=== PATIENT | female | born 1970 | race Caucasian/White ===

== ENCOUNTER 2025-01-05 12:23 | Emergency (ER) | payer OTHER ==
[~2025-01-05] VITALS: Ht 180.3 cm; Wt 61.2 kg
[~2025-01-05 12:23] MED LIST: ACEASPCAF PO; ALBU90OI INH; AMOX500 PO; BENZ100A PO; CLAR500 PO; CODGUAEL PO; CYCL10 PO; DIAZ5 PO; FAMO20 PO; HYDACE5 PO; IBUP400 PO; IBUP800 PO; LAVAP4L PO; NAPR500 PO; NEOPOLHCSU RIGHTEAR; OMEP20ER PO; OMEP40CA12 PO; PANT40 PO; PARO20 PO; PARO30; PRED20 PO; PROCODE120 PO; PROM25 PO; PSEU120ER PO; RANI150 PO; SUCR1 PO; TRAM50 PO
[2025-01-05 12:28] VITALS: BP 147/108
[2025-01-05 13:03] LABS: Source, Urine Clean Catch
[2025-01-05 13:06] LABS: Bilirubin, Urine Neg (Neg); Color, Urine Yellow (P-Yellow); Glucose Qualitative, Urine Neg (Neg); Ketones, Urine Neg (Neg); Leukocyte Esterase, Urine 2+ (Neg); Protein, Urine 2+ (Neg); Specific Gravity, Urine 1.025 (1.003-1.022); Urobilinogen, Urine NORM (Normal)
[2025-01-05 13:12] LABS: Red Blood Cells, Urine 25-50 /hpf (0-2)
[2025-01-05] MEDS ORDERED: Ketorolac Tromethamine 15mg Vial IV ONE (14:20)
[2025-01-05 14:25] LABS: BASOPHILS ABSOLUTE AUTO 0.01 K/mm3 (0.00-0.23); BASOPHILS PERCENT AUTO 0 % (0-2); EOSINOPHILS ABSOLUTE AUTO 0.00 K/mm3 (0.00-0.68); EOSINOPHILS PERCENT AUTO 0 % (0-6); Hematocrit 40.6 % (33.0-51.0); Hemoglobin 13.5 g/dL (11.5-16.0); IMMATURE GRAN ABSOLUTE AUTO 0.01 K/mm3 (0.00-0.10); IMMATURE GRAN PERCENT AUTO 0 % (0-1); LYMPHOCYTES ABSOLUTE AUTO 1.52 K/mm3 (0.84-5.20); LYMPHOCYTES PERCENT AUTO 29 % (21-46); MONOCYTES ABSOLUTE AUTO 0.38 K/mm3 (0.16-1.47); MONOCYTES PERCENT AUTO 7 % (4-13); Mean Corpuscular HGB Conc 33.3 g/dL (31.5-36.5); Mean Corpuscular Volume 98 fL (80-100); NEUTROPHILS ABSOLUTE AUTO 3.27 K/mm3 (1.96-9.15); NEUTROPHILS PERCENT AUTO 63 % (41-73); NRBC ABSOLUTE 0.00 K/mm3 (0.00-0.02); NRBC Auto 0.0 /100 WBC (0.0-0.2); Platelet Count 208 K/mm3 (150-400); RDW Coefficient Variation 11.9 % (11.7-14.2); RDW Standard Deviation 42.9 fL (35.1-46.3)
[2025-01-05 14:39] LABS: Alanine Aminotransfer (ALT/SGP 20.0 U/L (12-78); Albumin, Blood 3.4 g/dL (3.4-5.0); Albumin/Globulin Ratio 1.1 (0.8-1.8); Anion Gap 3.0 mmol/L (3-11); Aspartate Aminotrans (AST/SGOT 12.0 U/L (12-37); Bilirubin, Total 0.2 mg/dL (0.1-1.0); Blood Urea Nitrogen 22.0 mg/dL (8-24); CO2, Blood 30.0 mmol/L (21-32); Calcium, Blood 8.7 mg/dL (8.5-10.1); Chloride, Blood 111.0 mmol/L (98-108); Creatinine, Blood 0.64 mg/dL (0.40-1.00); Globulin, Blood 3.2 g/dL (2.2-4.0); Glucose, Blood 85.0 mg/dL (70-99); Potassium, Blood 4.0 mmol/L (3.5-5.5); Sodium, Blood 140.0 mmol/L (136-145); Total Protein, Blood 6.6 g/dL (6.4-8.2)
[2025-01-05] MEDS ORDERED: BACTRIM DS TAB1 EAC1 PO (14:47)
[2025-01-05] MEDS ORDERED: Trimethoprim/Sulfamethoxazole DS Tab PO ONE (14:50)
== END 2025-01-05 15:21 | disposition home or self-care (01) ==
LOC: ER 12:23
PROVIDERS: Physician Assistant
DX: N13.6 Pyonephrosis (principal); F17.200 Nicotine dependence, unspecified, uncomplicated; Z59.89 Other problems related to housing and economic circumstances
CPT/HCPCS: 74177; 80053; 81001; 85025; 87086; 96374-59; 99283-25; A9270; J1885; Q9967

== ENCOUNTER 2025-03-27 15:47 | Emergency (ER) | payer OTHER ==
[~2025-03-27] VITALS: Ht 180.3 cm; Wt 68.0 kg
[~2025-03-27 15:47] MED LIST changes: +BACTRIM DS TAB1 EAC1 PO
[2025-03-27 16:50] LABS: BASOPHILS ABSOLUTE AUTO 0.05 K/mm3 (0.00-0.23); BASOPHILS PERCENT AUTO 1 % (0-2); EOSINOPHILS ABSOLUTE AUTO 0.00 K/mm3 (0.00-0.68); EOSINOPHILS PERCENT AUTO 0 % (0-6); Hematocrit 47.4 % (33.0-51.0); Hemoglobin 16.4 g/dL (11.5-16.0); IMMATURE GRAN ABSOLUTE AUTO 0.02 K/mm3 (0.00-0.10); IMMATURE GRAN PERCENT AUTO 0 % (0-1); LYMPHOCYTES ABSOLUTE AUTO 2.36 K/mm3 (0.84-5.20); LYMPHOCYTES PERCENT AUTO 31 % (21-46); MONOCYTES ABSOLUTE AUTO 0.58 K/mm3 (0.16-1.47); MONOCYTES PERCENT AUTO 8 % (4-13); Mean Corpuscular HGB Conc 34.6 g/dL (31.5-36.5); Mean Corpuscular Volume 94 fL (80-100); NEUTROPHILS ABSOLUTE AUTO 4.58 K/mm3 (1.96-9.15); NEUTROPHILS PERCENT AUTO 60 % (41-73); NRBC ABSOLUTE 0.00 K/mm3 (0.00-0.02); NRBC Auto 0.0 /100 WBC (0.0-0.2); Platelet Count 279 K/mm3 (150-400); RDW Coefficient Variation 12.1 % (11.7-14.2); RDW Standard Deviation 41.8 fL (35.1-46.3)
[2025-03-27 17:12] LABS: Alanine Aminotransfer (ALT/SGP 19.0 U/L (12-78); Albumin, Blood 4.3 g/dL (3.4-5.0); Albumin/Globulin Ratio 1.2 (0.8-1.8); Anion Gap 10.0 mmol/L (3-11); Aspartate Aminotrans (AST/SGOT 11.0 U/L (12-37); Bilirubin, Total 0.6 mg/dL (0.1-1.0); Blood Urea Nitrogen 30.0 mg/dL (8-24); CO2, Blood 21.0 mmol/L (21-32); Calcium, Blood 9.8 mg/dL (8.5-10.1); Chloride, Blood 110.0 mmol/L (98-108); Creatinine, Blood 0.91 mg/dL (0.40-1.00); Globulin, Blood 3.5 g/dL (2.2-4.0); Glucose, Blood 97.0 mg/dL (70-99); Potassium, Blood 3.7 mmol/L (3.5-5.5); Sodium, Blood 137.0 mmol/L (136-145); Total Protein, Blood 7.8 g/dL (6.4-8.2)
[2025-03-27 20:36] LABS: Candida Group, PCR NOT DETECTED (NOT DETECT); Candida glabrata-krusei, PCR NOT DETECTED (NOT DETECT)
[2025-03-27 20:43] LABS: Source, Urine Clean Catch
[2025-03-27 20:47] LABS: Color, Urine Yellow (P-Yellow); Glucose Qualitative, Urine Neg (Neg); Ketones, Urine Neg (Neg); Leukocyte Esterase, Urine 3+ (Neg); Protein, Urine 2+ (Neg); Specific Gravity, Urine 1.025 (1.003-1.022); Urobilinogen, Urine 1+ (Normal)
[2025-03-27 21:05] LABS: Chlamydia Trachomatis Vaginal NOT DETECTED (NOT DETECT); Neisseria Gonorrhoea Vaginal NOT DETECTED (NOT DETECT)
[2025-03-27 21:12] LABS: Bilirubin, Urine 1+ (Neg)
[2025-03-27 22:22] LABS: Bacterial Vaginosis PCR Positive (NEGATIVE)
[2025-03-27] MEDS ORDERED: METR500 PO (23:20)
[2025-03-27 23:38] VITALS: BP 138/107
== END 2025-03-27 23:41 | disposition home or self-care (01) ==
LOC: ER 15:47
PROVIDERS: Student in an Organized Health Care Education/Training Program
DX: N76.0 Acute vaginitis (principal); Z79.52 Long term (current) use of systemic steroids; Z79.899 Other long term (current) drug therapy
CPT/HCPCS: 80053; 81001; 81515; 83690; 85025; 87086; 87491; 87591; 99283; A9270